=== PATIENT | female | born 1985 | race Caucasian/White ===

== ENCOUNTER 2022-05-26 10:54 | Emergency (ER) | payer OTHER, SELFPAY ==
[2022-05-26 10:55] VITALS: BP 141/80; PULSE 81; RESP 14; TEMP 36.3; O2SAT 100; BMI 34.3
--- NOTE | 2022-05-26 11:19 | EDS_ITS ---
HPI History of Present Illness Chief Complaint: Back Narrative Narrative: 37-year-old female presenting with lower back pain. She states that she was shaving in the shower and had her right leg up and at that point she felt a twinge in her back. This was yesterday. Patient states that she took ibuprofen yesterday and when she woke up this morning her back was more stiff. She states that it feels like it is into her buttocks on both sides. She denies any direct trauma. No loss of bladder or bowel control. No saddle anesthesia. She states she has an undiagnosed history of back problems which has been a problem for a long time. She states she used to do yoga but has not done this in over a year. She is no history of back surgeries. She states her only medical problem is PCOS. She is not concerned for . PFSH PFS Medical History PCOS (polycystic ovarian syndrome) Home Medications ibuprofen 200 mg tablet 400 mg PO Q6H PRN PRN Pain 10/28/13 [History Last Taken Unknown] cetirizine 5 mg tablet 5 mg PO DAILY PRN Allergy Symptoms 05/26/22 [History Last Taken Unknown] prednisone 10 mg tablet 50 mg PO DAILY 3 days #15 tabs 05/26/22 [Rx Last Taken Unknown] tizanidine 4 mg capsule (Zanaflex) 4 mg PO Q8H PRN muscle spasticity #15 caps 05/26/22 [Rx Last Taken Unknown] Allergy/AdvReac Type Severity Reaction Status Date / Time No Known Allergies Allergy Verified 05/26/22 10:55 Surgical History History of History of hysterectomy Social History Smoking Status: Never smoker ROS ROS ED Constitutional Constitutional ED: Denies chills or fever(s) Eyes Eyes: Denies blurry vision or change in vision ENT ENT ED: Denies rhinorrhea or sore throat Cardiovascular Cardiovascular: Denies chest pain or palpitations Respiratory/Chest Respiratory/Chest: Denies dyspnea or dyspnea on exertion Gastrointestinal Gastrointestinal: Denies abdominal pain or constipation Genitourinary Genitourinary ED: Denies dysuria or hematuria Musculoskeletal Musculoskeletal: Reports back pain; Denies neck pain Integumentary Denies abscess or Abrasions Neurologic Neurologic: Denies headache(s) or paresthesias EXAM Physical Exam Const Vital Signs: 05/26/22 10:55 Temperature 97.4 F L Temperature Source Temporal Pulse Rate 81 Respiratory Rate 14 Blood Pressure 141/80 H Blood Pressure Mean 100 Pulse Ox 100 Oxygen Delivery Method Room Air Positive well nourished General Appearance ED: NAD HEENT Reports moist mucous membranes Eyes PERRL and EOMs intact bilaterally Resp Auscultation: Negative for rales, rhonchi or wheezes Cardio regular rate and regular rhythm Back/Spine Back/Spine Narrative: No midline spinal tenderness, deformity, step-off of the lumbar spine. There is no reproducible tenderness to palpation of the bilateral paraspinal musculature. When I had the patient sit forward and twist her trunk if this exacerbates her pain in the lower back. Lumbar Spine / Lower Back: ROM limited Extremity normal to inspection Psych mental status grossly normal Skin no rashes or lesions noted and no wounds MDM MDM MDM Narrative Medical decision making narrative: 37-year-old female presenting with nontraumatic lower back pain. No signs or symptoms consistent with cauda equina syndrome. She states that she has undiagnosed back problems but is never had pain like this. Patient states that it is worsened over the last 24 hours. I do not believe she needs any imaging. Patient was given a dose of prednisone, Norflex, Toradol here in the ER. I will give her 3-day burst of prednisone as well. She is given muscle relaxers for home. He was counseled that she will need to do stretching exercises and she was counseled on these. She states that she understands because she has done yoga in the past but has not done this in about a year. I did automobile [employer] travel counselor her that long-term weight loss and core strengthening would be preventative for the most part of this. She acknowledged understanding. Patient discharged home in stable condition. Impression: 1. Lumbar strain Lab Data Attestation: I reviewed the patient's lab results. Discharge Plan Triage Chief Complaint: Back ED Provider: Joseph Tovar Dx/Rx/DC Orders Instructions: ED Back Exercises, Lumbar, ED Back Spasm, No Trauma Prescriptions: New prednisone 10 mg tablet 50 mg PO DAILY 3 Days Qty: 15 0RF tizanidine [Zanaflex] 4 mg capsule 4 mg PO Q8H PRN (Reason: muscle spasticity) Qty: 15 0RF No Action ibuprofen 200 MG tablet 400 mg PO Q6H PRN PRN (Reason: Pain) cetirizine [Zyrtec] 5 mg Tablet 5 mg PO DAILY PRN (Reason: Allergy Symptoms) Primary Care Provider: Care Physician,No Primary Referrals: Care Physician,No Primary [Primary Care Provider] - Disposition Disposition: Home, Self Care
[2022-05-26] MEDS: predniSONE 20 MG Tablet 60 MG PO (11:20)
[2022-05-26] MEDS: Ketorolac 15 MG/ML Vial IM (11:20)
[2022-05-26] MEDS: Orphenadrine 60 MG/2 ML Ampul IM (11:21)
[2022-05-26 11:47] VITALS: BP 121/77; PULSE 64; RESP 18; O2SAT 97
== END 2022-05-26 11:49 | disposition home or self-care (01) ==
LOC: ED 11:37
PROVIDERS: Emergency Provider Student in an Organized Health Care Education/Training Program; PCP Internal Medicine; Visit Provider Student in an Organized Health Care Education/Training Program
DX: S39.012A Strain of muscle, fascia and tendon of lower back, initial encounter (principal); X58.XXXA Exposure to other specified factors, initial encounter
CPT/HCPCS: 96372; 99281